=== PATIENT | male | born 1985 | race Hispanic/Latino ===

== ENCOUNTER → 2019-04-20 15:20 | Outpatient (CLI) | payer OTHER, MEDICAID, SELFPAY ==
[2019-04-20 16:22] LABS: Influenza A - CEPHEID Flu A NEGATIVE (NEGATIVE); Influenza B - CEPHEID Flu B POSITIVE (NEGATIVE)
== END ==
PROVIDERS: Visit Provider Family Medicine
DX: J11.1 Influenza due to unidentified influenza virus with other respiratory manifestations (principal)
CPT/HCPCS: 87502

== ENCOUNTER 2019-05-09 10:07 | Emergency (ER) | payer OTHER, MEDICAID, SELFPAY ==
[2019-05-09 10:20] VITALS: BP 156/100; PULSE 64; RESP 19; TEMP 36.9; O2SAT 99; BMI 24.2
== END 2019-05-09 10:40 | disposition left against medical advice (07) ==
PROVIDERS: Emergency Provider Emergency Medicine
CPT/HCPCS: 99281

== ENCOUNTER 2019-10-16 20:07 | Emergency (ER) | payer OTHER, MEDICAID, SELFPAY ==
[2019-10-16 20:17] VITALS: BP 106/60; PULSE 47; RESP 16; TEMP 36.9; O2SAT 99; BMI 25.0
--- NOTE | 2019-10-16 20:24 | PC.NURSE ---
Pt declining iv start or lab draw at this time.
== END 2019-10-16 20:46 | disposition left against medical advice (07) ==
PROVIDERS: Emergency Provider Emergency Medicine
DX: R07.9 Chest pain, unspecified (principal)
CPT/HCPCS: 93005; 99282

== ENCOUNTER 2019-12-27 11:42 | Emergency (ER) | payer OTHER, MEDICAID, SELFPAY ==
[2019-12-27 11:57] VITALS: BP 134/82; PULSE 54; RESP 16; TEMP 36.8; O2SAT 99
--- NOTE | 2019-12-27 12:10 | DI.RAD.S_ITS ---
PROCEDURE: XR FOREARM RT 2V INDICATIONS: unlar aspect pain, hit on car while falling TECHNIQUE: 2 views of the forearm were acquired. COMPARISON: None. FINDINGS: Bones: There is a mildly displaced, comminuted fracture of the mid shaft of the ulna. There is also an ulnar styloid fracture seen, which may be remote. No associated radial fracture is detected. Soft tissues: No suspicious soft tissue calcifications or masses. IMPRESSION: Mildly displaced, comminuted fracture of the mid shaft of the right ulna. Ulnar styloid fracture, which may be remote. Dictated by: Baltazar Silverio M.D. on 12/27/2019 at 11:36 Approved by: Baltazar Silverio M.D. on 12/27/2019 at 11:37
[2019-12-27] MEDS: IBUPROFEN 400 MG TABLET 800 MG PO (12:45)
--- NOTE | 2019-12-27 13:48 | ED_ITS ---
HPI - Extremity Injury (Upper) <ALEJANDRA Guaman - Last Filed: 12/27/19 14:02> General Chief Complaint: Extremity Injury, Upper Stated Complaint: Rt lower arm injury Time Seen by Provider: 12/27/19 11:55 Source: patient Mode of arrival: Ambulatory Limitations: no limitations History of Present Illness HPI narrative: This is a 34-year-old male who has noncontributing history presents to ED with chief complain of right forearm pain since last night. Patient reports his people dog jumped on him and hit ulnar aspect of lower arm to his truck while falling and landed on his buttock. He denies injuring his head, neck, or other areas. He reports swelling and pain on affected site which increases with movement and pronation/supination. Patient reports he is able to move his fingers and has intact sensation and improves with rest. Patient denies previous injury to same arm or hand. Patient had taken Tylenol this morning at 8:30 a.m. and Motrin last night for discomfort. Patient reports his pain is 9 to 10/10. Patient does not have primary care physician. Related Data Previous Rx's Medication Instructions Recorded hydrocodone-acetaminophen [[place]] 1 tab PO TID PRN #7 tab 12/27/19 Allergies Allergy/AdvReac Type Severity Reaction Status Date / Time No Known Drug Allergies Allergy Verified 05/09/19 10:27 Review of Systems <ALEJANDRA Guaman - Last Filed: 12/27/19 14:02> Review of Systems Narrative: General: Denies fever, chills, fatigue, malaise, sweats. Musculoskeletal: See HPI Skin: Denies rash, skin lesions, or other. Neurologic: Denies weakness, headache, numbness, change in speech, confusion, seizures, incoordination. Psychiatric: No concerning psychosocial issues. Patient History <ALEJANDRA Guaman - Last Filed: 12/27/19 14:02> Social History Smoking Status: Current every day smoker Smoking Status: Current every day smoker alcohol intake frequency: a few times a month Substance Use Type: former substance user and marijuana Exam <ALEJANDRA Guaman - Last Filed: 12/27/19 14:02> Narrative Exam Narrative: General appearance: well developed, well nourished, in no acute distress. Head: normocephalic, atraumatic, no scalp lesions, non-tender. ENT: Hearing grossly intact. Nose without bleeding, purulent discharge. Airway patent. Neck/Thyroid: neck supple, full range of motion, no visible masses or meningeal signs. No JVD. Skin: no suspicious rashes, lesions over visible areas. Warm and dry and appropriate color for ethnicity. Heart: no clubbing, no cyanosis, no edema. Lungs: Breathing even and unlabored. No stridor. No accessory muscles used. Able to speak in full sentences. Chest: normal shape and expansion. Abdomen: non-obese, non-distended. Neurologic: alert and oriented. Cognitive exam, [employer] and PNS grossly intact on informal exam. Psych: good eye contact, normal affect. Initial Vital Signs Initial Vital Signs: Vital Signs Temperature 98.2 F 12/27/19 11:57 Pulse Rate 54 L 12/27/19 11:57 Respiratory Rate 16 12/27/19 11:57 Blood Pressure 134/82 12/27/19 11:57 Pulse Oximetry 99 12/27/19 11:57 Extrem Right upper extremity: elbow/forearm Details: normal to inspection, tenderness Location: of the mid-shaft forearm, swelling Location: of the mid-shaft forearm, abnormal ROM Details: pain with active ROM during Details: with pronation and with supination and pain with passive ROM during Details: with pronation and with supination and distal pulses intact; no ecchymosis, no crepitus and no deformity, wrist Details: normal to inspection; no tenderness and no swelling and hand Details: normal to inspection, normal ROM of fingers (but increases pain in forearm) and no swelling <Kimber Marks DO - Last Filed: 12/28/19 07:09> Initial Vital Signs Initial Vital Signs: Vital Signs Temperature 98.2 F 12/27/19 11:57 Pulse Rate 54 L 12/27/19 11:57 Respiratory Rate 16 12/27/19 11:57 Blood Pressure 134/82 12/27/19 11:57 Pulse Oximetry 99 12/27/19 11:57 Procedures <ALEJANDRA Guaman - Last Filed: 12/27/19 14:02> Orthopedic Splinting/Casting Injury #1: Side: right Upper Extremity Injury Location: forearm Upper Extremity Immobilizer: sling/shoulder immobilizer and sugar tong splint Post splinting neuro exam: intact Post splinting vascular exam: intact Placed by: Nursing Scores <ALEJANDRA Guaman - Last Filed: 12/27/19 14:02> GCS [place] coma scale eye opening: Spontaneous [place] coma scale verbal response: Orientated [place] coma scale motor response: Obey commands [place] coma scale total score: 15 Course <ALEJANDRA Guaman - Last Filed: 12/27/19 14:02> Orders Ordered: Discontinued Medications Ibuprofen (Advil) 800 mg PO NOW ONE Stop: 12/27/19 12:11 Last Admin: 12/27/19 12:45 Dose: 800 mg Documented by: GABY Vital Signs Vital signs: Vital Signs - 8 hr 12/27/19 11:57 Temperature 98.2 F Pulse Rate 54 L Respiratory Rate 16 Blood Pressure 134/82 Pulse Oximetry 99 <Kimber Marks DO - Last Filed: 12/28/19 07:09> Orders Ordered: Discontinued Medications Ibuprofen (Advil) 800 mg PO NOW ONE Stop: 12/27/19 12:11 Last Admin: 12/27/19 12:45 Dose: 800 mg Documented by: GABY Vital Signs Vital signs: Vital Signs - 8 hr 12/27/19 11:57 Temperature 98.2 F Pulse Rate 54 L Respiratory Rate 16 Blood Pressure 134/82 Pulse Oximetry 99 MDM - Extremity Injury (Upper) <ALEJANDRA Guaman - Last Filed: 12/27/19 14:02> Differential Diagnosis Differential diagnosis: Likely other (contusion to forearm, fracture of forearm) Medical Records Attestation: I reviewed the patient's medical records. Imaging Data XR-Forearm RT: Radiologist's Impression: [address] [address] XRay Report Signed Patient: Jozef Sahu#: [id number] : 1985Acct:[id number] Age/Sex: 34 / MDate of Service: 12/27/19 Loc: ED Accession Number: [id number] Procedure: XR forearm RT 2V Ordering Provider: Howard Tran PROCEDURE: XR FOREARM RT 2V INDICATIONS: unlar aspect pain, hit on car while falling TECHNIQUE: 2 views of the forearm were acquired. COMPARISON: None. FINDINGS: Bones: There is a mildly displaced, comminuted fracture of the mid shaft of the ulna. There is also an ulnar styloid fracture seen, which may be remote. No associated radial fracture is detected. Soft tissues: No suspicious soft tissue calcifications or masses. IMPRESSION: Mildly displaced, comminuted fracture of the mid shaft of the right ulna. Ulnar styloid fracture, which may be remote. Dictated by: Baltazar Silverio M.D. on 12/27/2019 at 11:36 Approved by: Baltazar Silverio M.D. on 12/27/2019 at 11:37 MDM Narrative Medical decision making narrative: Distal pulse and sensation intact. Patient is able to move fingers but increased pain right forearm in ulna aspect. There is moderate swelling around forearm. X-ray test shows mild displaced communicated fracture of the midshaft of the ulna and possibly remote fracture on ulna styloid appreciated. Patient was medicated with Motrin in ED and applied ice pack for discomfort. Affected arm has been placed on sugar-tong splint and provided sling for elevation. Patient advised to exercise right shoulder to prevent frozen shoulder using sling. According to [facility] provider review, the patient received 10 tabs of Suboxone on 12/15/2019 but the patient states this was given one year ago due to drunk drive and when he had to attend the class. Patient provided with few tabs of [place] for severe pain and advised to use [id number] Tylenol and or Motrin as a baseline pain management. Advised to follow-up with [facility] orthopedist and discussed compartment syndrome precautions along other return precautions and advised to use cool pack and elevate affected arm to prevent swelling and for pain. Patient verbalized understanding and agreement with the treatment plan. Discharge Plan Departure Patient Disposition: Home Clinical Impression: Fracture, ulna, shaft Qualifiers: Encounter type: initial encounter Fracture type: closed Fracture morphology: comminuted Fracture alignment: displaced Laterality: right Qualified Code(s): S52.251A - Displaced comminuted fracture of shaft of ulna, right arm, initial encounter for closed fracture Discharge Date/Time: 12/27/19 13:53 Instructions: DI for Forearm Fracture Activity Restrictions/Additional Instructions: You have been diagnosed with [right ulna closed mildly displaced fracture according to x-ray test.]. What to do: *Take your medications as directed. Please take [id number] Tylenol and or Motrin as needed for discomfort. Tylenol 650-1000 mg with to 3 to 4 times a day as needed for pain. Ibuprofen 400-600 mg up to 3 to 4 times a day as needed for pain with food to decrease GI irritation. [place] is a narcotic pain medications and take it only for severe pain. This has Tylenol products included. On adult can take up to 3-4000 mg Tylenol in 24 hour period. It can also cause constipation so please take precautions. *Follow up with your primary care provider/[facility] in 2-3 days, call for an appointment. Let them know you were seen in the ED and that we asked you to be seen in follow up. *Return to ED if you have any new, worsening, or concerning symptoms, such as [worsening pain, tingling/numbness/pale fingertips, chest pain, breathing difficulty, unable to tolerate fluids or any acute concerns]. Prescriptions: New hydrocodone-acetaminophen [[place]] 5-325 mg tablet 1 tab PO TID PRN (Reason: pain) Qty: 7 RF: 0 Referrals: [facility] [Provider Group] [facility] [Outside] <Kimber Marks DO - Last Filed: 12/28/19 07:09> [facility] ED Attending Wendy Attestation: I was immediately available in the dep artment for consultation. Documentation has been reviewed. I agree with assessment and plan.
== END 2019-12-27 13:53 | disposition home or self-care (01) ==
PROVIDERS: Emergency Provider Nurse Practitioner Family
DX: S52.251A Displaced comminuted fracture of shaft of ulna, right arm, initial encounter for closed fracture (principal); W54.1XXA Struck by dog, initial encounter
CPT/HCPCS: 73090; 99283

== ENCOUNTER 2020-01-04 10:48 | Emergency (ER) | payer OTHER, MEDICAID, SELFPAY ==
[2020-01-04 11:02] VITALS: BP 124/75; PULSE 83; RESP 14; TEMP 36.4; O2SAT 98
--- NOTE | 2020-01-04 17:07 | ED.RECABL ---
HPI - Recheck/Abnormal Lab/Rx General Chief Complaint: Recheck/Abnormal Lab/Rx Stated Complaint: broken right arm Source: patient Mode of arrival: Ambulatory Limitations: no limitations Related Data Previous Rx's Medication Instructions Recorded hydrocodone-acetaminophen [[place]] 1 tab PO TID PRN #7 tab 12/27/19 Allergies Allergy/AdvReac Type Severity Reaction Status Date / Time No Known Drug Allergies Allergy Verified 01/04/20 11:06 Patient History Social History Smoking Status: Current every day smoker Smoking Status: Current every day smoker alcohol intake frequency: a few times a month Substance Use Type: former substance user and marijuana Exam Initial Vital Signs Initial Vital Signs: Vital Signs Temperature 97.6 F 01/04/20 11:02 Pulse Rate 83 01/04/20 11:02 Respiratory Rate 14 01/04/20 11:02 Blood Pressure 124/75 01/04/20 11:02 Pulse Oximetry 98 01/04/20 11:02 Course Vital Signs Vital signs: Vital Signs - 8 hr 01/04/20 11:02 Temperature 97.6 F Pulse Rate 83 Respiratory Rate 14 Blood Pressure 124/75 Pulse Oximetry 98 Discharge Plan Departure Patient Disposition: Left Without Being Seen Clinical Impression: Patient left without being seen Discharge Date/Time: 01/04/20 13:09
== END 2020-01-04 13:09 | disposition left against medical advice (07) ==
PROVIDERS: Emergency Provider Emergency Medicine
CPT/HCPCS: 99281